=== PATIENT | female | born 1960 | race Caucasian/White ===

== ENCOUNTER 2018-07-23 18:59 | Inpatient (IN) ==
[2018-07-23 19:34] LABS: BILIRUBIN URINE NEGATIVE (NEGATIVE); BLOOD URINE 4+ (NEGATIVE); CLARITY VERY CLOUDY (CLEAR); COLOR YELLOW; GLUCOSE URINE NEGATIVE (NEGATIVE); KETONE URINE NEGATIVE (NEGATIVE); LEUKOCYTES URINE 2+ (NEGATIVE); NITRITE URINE POSITIVE (NEGATIVE); PROTEIN URINE TRACE mg/dL (NEGATIVE); UROBILINOGEN URINE NORMAL
[2018-07-23 19:53] LABS: URINE SOURCE CLEAN CATCH
[2018-07-23 19:54] LABS: URINE BACTERIA 4+ /HFP; URINE CAST NONE SEEN /LPF; URINE CRYSTAL NONE SEEN /HPF; URINE EPITHELIAL CELLS >10 /HPF (<10); URINE RBC TNTC /HPF (<10); URINE WBC TNTC /HPF (<10); URINE YEAST NONE SEEN /HPF
[2018-07-23] MEDS ORDERED: TYLENOL PO ONE (20:11)
[2018-07-23 20:13] LABS: BASO# 0.04 X1000 (0.0-0.2); BASO% 0.5 % (0.0-0.8); HEMATOCRIT 32.5 % (37.0-47.0); HEMOGLOBIN 11.2 g/dL (12.0-16.0); IMM GRAN# 0.02 X1000 (0.0-0.04); IMM GRAN% 0.2 % (0.0-0.5); LYMPH# 1.17 X1000 (1.2-3.4); LYMPH% 13.4 % (20.5-51.1); MCH 28.9 PG (27-31); MCHC 34.5 g/dL (33-37); MONO# 0.78 X1000 (0.11-0.59); MPV 8.5 FL (7.4-10.4); NEUT% 76.9 % (42.2-75.2); PLT 294 X1000 (130-400); RBC 3.87 XMIL (4.2-5.4); RDW 13.2 % (11.5-14.5); WBC 8.71 X1000 (4.8-10.8)
[2018-07-23] MEDS ORDERED: NS 1,000 ML IV ONE ×2 (20:13→21:12)
[2018-07-23 20:29] LABS: AGAP 12; ALBUMIN 3.9 g/dL (3.5-5.0); ALKALINE PHOSPHATASE 149 U/L (32-104); BUN 9 mg/dL (8-22); CALCIUM 8.5 mg/dL (8.8-10.2); CHLORIDE 91 mmol/L (98-107); COSMO 261; CREATININE 0.8 mg/dL (0.5-0.9); ESTIMATED GFR > 60; GLUCOSE 117 mg/dL (70-104); GOT 12 U/L (10-30); GPT 7 U/L (10-36); POTASSIUM 3.6 mmol/L (3.5-5.1); SODIUM 130 mmol/L (136-145); TCO2 28 mmol/L (25-35); TOTAL PROTEIN 7.8 g/dL (6.3-8.3)
[2018-07-23] MEDS ORDERED: GENTAMICIN 100 MG/NS 100 MG/100 ML IVPB IV ONE (20:30)
[2018-07-23] MEDS ORDERED: ROCEPHIN 1 GM in NS 50 ML IV ONE (20:31)
[2018-07-23] MEDS ORDERED: GENTAMICIN ONE (21:10)
[2018-07-23] MEDS ORDERED: NS 100 ML ONE (21:13)
--- NOTE | 2018-07-23 21:13 | Diag Imaging Result Doc PS360 ---
EXAM: CHEST-2 VIEWS 07/23/2018 HISTORY: sepsis TECHNIQUE: PA and lateral chest COMMENT: The heart size and primary vascularity are within normal limits. There is some ill-defined opacity in the medial right lower lobe. There are no previous plain radiographs available for comparison. There was no apparent opacity in the right lower lobe on the CT of 08/26/2017. IMPRESSION: Right lower lobe pneumonia. Electronically signed by Nickolas Deshpande 07/23/2018 9:11 PM
[2018-07-23] MEDS ORDERED: TYLENOL PO PRN (23:01)
[2018-07-23] MEDS ORDERED: ROBAXIN PO PRN (23:03)
[2018-07-23] MEDS: MORPHINE IV PRN (23:52)
[2018-07-23] MEDS: ZOFRAN IV PRN (23:52)
[2018-07-23] MEDS: NS 1,000 ML IV SCH (23:52)
[2018-07-23] MEDS: NORCO-10 PO PRN (23:53)
--- NOTE | 2018-07-24 04:30 | PROVIDER DOCUMENTATION ---
This chart was entered by Leidy Brown Scribe, acting as scribe for Wali Ray MD. HPI-General Adult - General Chief Complaint: Flank Pain Stated Complaint: FLU SX/BACK PAIN Time Seen by Provider: 07/23/18 19:30 Source: patient Allergies/Adverse Reactions: Patient Allergies Allergy/AdvReac Type Severity Reaction Status Date / Time diazepam [From Valium] Allergy Intermediate RASH Verified 11/01/17 05:36 pantoprazole sodium * Allergy Intermediate RASH Verified 11/01/17 05:36 [From Protonix] prednisone Allergy Intermediate FATIGUE Verified 11/01/17 05:36 oxycodone [Oxycodone] Allergy Unknown Verified 11/01/17 05:36 ketorolac [From Toradol] AdvReac NAUSEA/VOMI Verified 11/01/17 05:36 TING Home Medications: Home Medication List Medication Instructions Recorded Confirmed Last Taken Type Cevimeline [Evoxac] 30 mg PO DAILY 09/24/15 07/23/18 07/21/18 History Cholecalciferol (Vitamin D3) 2,000 unit PO DAILY 09/24/15 07/23/18 10/31/17 History [Vitamin D3] Citalopram [Celexa] 40 mg PO DAILY 09/24/15 07/23/18 07/21/18 History Cyanocobalamin (Vitamin B-12) 1,000 mcg IJ DAILY 09/24/15 07/23/18 3 Days Ago History [Cyanocobalamin Injection] ~07/20/18 Esomeprazole Magnesium [Nexium 22.3 mg PO DAILY 09/24/15 11/01/17 10/31/17 History 24Hr] Hydroxychloroquine [Plaquenil] 200 mg PO DAILY 09/24/15 07/23/18 10/31/17 History Simvastatin 20 mg PO DAILY 09/24/15 07/23/18 10/31/17 History Thyroid,Pork [[place] Thyroid] 120 mg PO DAILY 09/24/15 11/01/17 10/31/17 History Gabapentin 600 mg PO BID 11/01/17 07/23/18 2 Days Ago History ~07/21/18 Methocarbamol [Robaxin-750] 750 mg PO Q8H PRN #12 tablet 11/01/17 07/23/18 Unknown Rx Hydrocodone/Acetaminophen [[place] 1 ea PO TID 07/23/18 07/23/18 Unknown History 10-325 Tablet] Levothyroxine Sodium 125 mg PO DAILY 07/23/18 07/23/18 Unknown History - History of Present Illness -Gen Adult Nature of Presenting Problems: Pt is 57/F presenting to ED w/ c/o R flank pain, fever and polyuria. Pt has hx of R kidney infections and scarring. Location of Pain/Injury: reports: lower body (R flank pain) Pain Radiation: reports: flank (R) Severity: reports: moderate Onset/Duration: reports: just prior to arrival Timing: reports: still present Context/Activities at Onset: reports: none Modifying Factors: improves with: nothing Associated Symptoms: denies: chest pain, cough, fatigue, nausea, vomiting Similar Symptoms Previously?: Yes Recently seen or treated by another doctor?: No Review of Systems - Adult - REVIEW OF SYSTEMS - ADULT Constitutional: reports: fever. denies: chills Eyes: reports: no symptoms reported Ears, Nose, Mouth & Throat: reports: no symptoms reported Cardiovascular: reports: no symptoms reported. denies: chest pain, edema Respiratory: reports: no symptoms reported Gastrointestinal: reports: no symptoms reported. denies: nausea, vomiting Genitourinary: reports: frequency, flank pain (R flank) Integumentary: reports: no symptoms reported Neurological: reports: no symptoms reported. denies: dizziness/vertigo, headache/migraines Psychiatric: reports: no symptoms reported Endocrine: reports: no symptoms reported Hematologic/Lymphatic: reports: no symptoms reported Allergic/Immunologic: reports: no symptoms reported All Other Systems: Reviewed and Negative Past History - Adult - PAST MEDICAL HISTORY-ADULT Review of Records: reports: Old Records Reviewed, Nursing Assessment Review, Medications Reviewed, Social history reviewed & non-contributory. Major Childhood Illnesses: reports: denies history Cardiovascular: reports: denies history, other (sleep apnea) Respiratory: reports: other Gastrointestinal: reports: cancer Obstetrical/Gynecological: reports: denies history Genitourinary: reports: denies history Musculoskeletal: reports: denies history Neurological: reports: denies history Endocrine/Immune: reports: thyroid disorder Other Conditions: reports: denies history - PRIOR SURGERIES/PROCEDURES Surgical/Procedure History: reports: appendectomy, cholecystectomy, hysterectomy , orthopedic (extremity), other - PRIOR HOSPITALIZATIONS Prior Hospitalizations: reports: for other non-related - IMMUNIZATION STATUS Childhood Immunizations: UTD, See Nurse Assessment Flu Vaccine: See Nurse Assessment - FAMILY HISTORY Family History: reviewed, not pertinent - SOCIAL HISTORY Smoking: denies, non-smoker Substance Use: none/never Alcohol Use Frequency: never Living Situation: family Physical Exam-General - PHYSICAL EXAM-ADULT Initial Vital Signs Reviewed: Yes - CONSTITUTIONAL General Appearance: alert, mild distress - EYES Eyes: PERRL/EOMI - HEAD, EARS, NOSE, MOUTH & THROAT HENMT: normocephalic/atraumatic, moist mucous membranes, pharynx normal - NECK Neck: non-tender, full range of motion, supple - RESPIRATORY Respiratory: lungs clear, normal breath sounds - CARDIOVASCULAR Cardiovascular: regular rate, rhythm - GASTROINTESTINAL (ABDOMEN) Abdominal Exam: normal bowel sounds, non tender, soft - LYMPHATIC Lymphatic: no adenopathy - MUSCULOSKELETAL Back Exam: CVA tenderness (R sided CVA tenderness) Extremity: normal range of motion, non-tender, normal gait, normal inspection - SKIN Integumentary: normal color, warm/dry - NEUROLOGIC Neurologic: grossly normal - PSYCHIATRIC Psych/Mental Status: oriented x 3 Progress - PLAN OF CARE/RESULTS Progress/Plan/Lab Results: Vital Signs - 8 hr 07/23/18 19:16 07/23/18 20:22 Temperature 99.1 F Pulse Rate 117 H 111 H Respiratory Rate 20 22 Blood Pressure 140/71 O2 Sat by Pulse Oximetry 99 98 Laboratory Results - last 24 hr 07/23/18 07/23/18 07/23/18 19:24 20:01 20:01 WBC 8.71 RBC 3.87 L Hgb 11.2 L Hct 32.5 L MCV 84.0 MCH 28.9 MCHC 34.5 RDW Std Deviation 13.2 Plt Count 294 MPV 8.5 Immature Gran % (Auto) 0.2 Neut % (Auto) 76.9 H Lymph % (Auto) 13.4 L [place] % (Auto) 9.0 Eos % (Auto) 0.0 Baso % (Auto) 0.5 Immature Gran # (Auto) 0.02 Neut # (Auto) 6.70 H Lymph # (Auto) 1.17 L [place] # (Auto) 0.78 H Eos # (Auto) 0.00 Baso # (Auto) 0.04 Sodium 130 L Potassium 3.6 Chloride 91 L Carbon Dioxide 28 Anion Gap 12 BUN 9 Creatinine 0.8 Estimated GFR/1.73 m2 > 60 BUN/Creatinine Ratio 11 Glucose 117 H Calculated Osmolality 261 Calcium 8.5 L Total Bilirubin 0.60 AST 12 ALT 7 L Alkaline Phosphatase 149 H Total Protein 7.8 Albumin 3.9 Globulin 4.0 Albumin/Globulin Ratio 1.0 Plasma Lactate Urine Source CLEAN CATCH Urine Color YELLOW Urine Clarity VERY CLOUDY A Urine pH 8.0 Ur Specific [place] 1.010 Urine Protein TRACE A Urine Ketones NEGATIVE Urine Blood 4+ Urine Nitrite POSITIVE A Urine Bilirubin NEGATIVE Urine Urobilinogen NORMAL Urine Microscopic RBC TNTC A Urine WBC 2+ A Urine Microscopic WBC TNTC A Ur Epithelial Cells >10 A Urine Crystals NONE SEEN Urine Bacteria 4+ Urine Casts NONE SEEN Urine Yeast NONE SEEN Urine Glucose NEGATIVE 07/23/18 20:01 WBC RBC Hgb Hct MCV MCH MCHC RDW Std Deviation Plt Count MPV Immature Gran % (Auto) Neut % (Auto) Lymph % (Auto) [place] % (Auto) Eos % (Auto) Baso % (Auto) Immature Gran # (Auto) Neut # (Auto) Lymph # (Auto) [place] # (Auto) Eos # (Auto) Baso # (Auto) Sodium Potassium Chloride Carbon Dioxide Anion Gap BUN Creatinine Estimated GFR/1.73 m2 BUN/Creatinine Ratio Glucose Calculated Osmolality Calcium Total Bilirubin AST ALT Alkaline Phosphatase Total Protein Albumin Globulin Albumin/Globulin Ratio Plasma Lactate 1.2 Urine Source Urine Color Urine Clarity Urine pH Ur Specific [place] Urine Protein Urine Ketones Urine Blood Urine Nitrite Urine Bilirubin Urine Urobilinogen Urine Microscopic RBC Urine WBC Urine Microscopic WBC Ur Epithelial Cells Urine Crystals Urine Bacteria Urine Casts Urine Yeast Urine Glucose Orders Category Date Time Status Admit - [facility] Routine AdmDCTranf 07/23/18 20:55 Active cxr [CHEST-2 VIEWS] [RAD] Stat Exams 07/23/18 20:21 Taken BLOOD CULTURE [BLDCUL] Stat Lab 07/23/18 20:11 Ordered CBC WITH ELECTRONIC DIFF [HEME] Stat Lab 07/23/18 20:01 Completed CMP [COMPREHENSIVE METABOLIC PANEL] [CHEM] Stat Lab 07/23/18 20:01 Completed LACTATE, PLASMA [CHEM] Stat Lab 07/23/18 20:[address] W/POSS RFLX CULT [URINALYSIS] Stat Lab 07/23/18 19:24 Completed URINE CULTURE [RM] Routine Lab 07/23/18 19:54 Ordered 0.9% Sodium Chloride Inj [Ns] 1,000 ml Med 07/23/18 20:13 Active IV 999 mls/hr Acetaminophen [Tylenol] Med 07/23/18 20:11 Discontinued 1,000 mg PO NOW ONE CefTRIAXONE [Rocephin] 1 gm Med 07/23/18 20:31 Discontinued 0.9% Sodium Chloride Inj [Ns] 50 ml IV NOW Gentamicin 100 mg/Ns Med 07/23/18 20:30 Active 100 mg in 100 ml IV NOW Transfer/Admit Order [TRANSFER] Routine Transfer 07/23/18 20:56 Ordered Result Diagrams: 07/23/18 20:01 07/23/18 20:01 - XRAY 1 XRAY: Bilateral XRAY Study: Chest Impression: Abnormal (IMPRESSION: Right lower lobe pneumonia. Electronically signed by Nickolas Deshpande 07/23/2018 9:11 PM [id number]) Departure - Departure Date of Disposition Decision: 07/23/18 Time of Disposition Decision: 20:50 DIAGNOSIS: Pyelonephritis Pneumonia Qualifiers: Pneumonia type: due to unspecified organism Laterality: right Lung location: lower lobe of lung Qualified Code(s): J18.1 - Lobar pneumonia, unspecified organism Disposition: ADMITTED INPATIENT 09 Certified Medical Emergency: Emergent Condition: Stable - Critical Care Note This patient required my direct & personal management of CC.: No Attestation - Physician/ JOSEF Attestation Patient care was provided by Advanced Practice Provider:: No The physician spent face to face time with patient:: Yes Advanced Practice Provider documentation review:: Supervising physician onsite and consulted in the evaluation and care of this patient. The physician did have a face to face encounter with the patient. This chart was documented by the indicated scribe, (Leidy Brown Scribe) and accurately reflects the services I performed and decisions made by me, Wali Vieira MD, as attested by the provider's signature.
[2018-07-24] MEDS: ZOFRAN IV PRN (04:35)
[2018-07-24] MEDS: MORPHINE IV PRN (04:36)
[2018-07-24 06:15] LABS: BASO# 0.01 X1000 (0.0-0.2); BASO% 0.2 % (0.0-0.8); EOS# 0.03 X1000 (0.0-0.7); EOS% 0.5 % (0.0-10.0); HEMATOCRIT 30.3 % (37.0-47.0); HEMOGLOBIN 9.9 g/dL (12.0-16.0); LYMPH# 0.74 X1000 (1.2-3.4); LYMPH% 12.2 % (20.5-51.1); MCH 27.7 PG (27-31); MCHC 32.7 g/dL (33-37); MCV 84.9 FL (81-99); MONO# 0.53 X1000 (0.11-0.59); MONO% 8.7 % (1.7-9.3); MPV 8.8 FL (7.4-10.4); NEUT# 4.75 X1000 (1.4-6.5); NEUT% 78.4 % (42.2-75.2); PLT 222 X1000 (130-400); RBC 3.57 XMIL (4.2-5.4); RDW 13.4 % (11.5-14.5); WBC 6.06 X1000 (4.8-10.8)
[2018-07-24] MEDS: PRILOSEC PO SCH ×2 (06:22→06:23)
[2018-07-24] MEDS: NS 1,000 ML IV SCH ×3 (06:24→18:10)
[2018-07-24 06:40] LABS: AGAP 11; BUN 8 mg/dL (8-22); CALCIUM 7.7 mg/dL (8.8-10.2); CHLORIDE 98 mmol/L (98-107); COSMO 267; CREATININE 0.7 mg/dL (0.5-0.9); ESTIMATED GFR > 60; GLUCOSE 112 mg/dL (70-104); POTASSIUM 3.5 mmol/L (3.5-5.1); SODIUM 134 mmol/L (136-145); TCO2 26 mmol/L (25-35)
[2018-07-24] MEDS: NORCO-10 PO PRN ×2 (08:52→15:26)
[2018-07-24] MEDS: PLAQUENIL PO SCH (09:06)
[2018-07-24] MEDS: NEURONTIN PO SCH ×2 (09:06→21:11)
[2018-07-24] MEDS: VITAMIN D PO SCH (09:06)
[2018-07-24] MEDS: SYNTHROID PO SCH ×2 (09:06)
[2018-07-24] MEDS: ZOCOR PO SCH (09:06)
[2018-07-24] MEDS: DUONEB (A & A) INH SCH ×4 (11:31→22:57)
[2018-07-24] MEDS: ZITHROMAX 500 MG/NS 500 MG/250 ML IVPB IV SCH (11:58)
[2018-07-24] MEDS: CELEXA PO SCH (11:58)
[2018-07-24] MEDS: PATIENT'S OWN MED PO SCH (11:59)
[2018-07-24] MEDS: ROCEPHIN 1 GM in NS 50 ML IV SCH (21:11)
[2018-07-24] MEDS: REQUIP PO SCH (21:11)
[2018-07-25] MEDS: NS 1,000 ML IV SCH ×3 (03:27→23:56)
[2018-07-25] MEDS: DUONEB (A & A) INH SCH ×6 (03:31→23:04)
[2018-07-25] MEDS: NORCO-10 PO PRN ×2 (04:07→11:31)
[2018-07-25] MEDS: PRILOSEC PO SCH (06:20)
[2018-07-25] MEDS: SYNTHROID PO SCH ×2 (06:21)
[2018-07-25] MEDS ORDERED: SYNTHROID PO SCH (07:00)
[2018-07-25] MEDS: CELEXA PO SCH (09:48)
[2018-07-25] MEDS: NEURONTIN PO SCH ×2 (09:48→20:19)
[2018-07-25] MEDS: VITAMIN D PO SCH (09:49)
[2018-07-25] MEDS: PLAQUENIL PO SCH (09:49)
[2018-07-25] MEDS: ZOCOR PO SCH (09:49)
[2018-07-25] MEDS: PATIENT'S OWN MED PO SCH (09:57)
[2018-07-25] MEDS: ZITHROMAX 500 MG/NS 500 MG/250 ML IVPB IV SCH (10:25)
--- NOTE | 2018-07-25 11:10 | PROGRESS NOTE ---
DATE: 07/25/2018 SUBJECTIVE: Patient feels somewhat better this morning, although she still has right flank pain. OBJECTIVE: Vital Signs: Temperature 98 degrees, pulse 79 per minute, respiratory rate 18 per minute, blood pressure 100/43, pulse oximetry 99% on room air. General: Patient is alert and oriented x3. She does not appear to be in any acute distress. Cardiovascular System: First and second heart sounds are audible without any murmurs or gallops. Respiratory System: Bilateral lung air entry is good without any rales or rhonchi. Gastrointestinal: Abdomen is soft and significantly tender in the right flank area, although the tenderness is much better as compared to yesterday. DIAGNOSTIC DATA: CBC shows hemoglobin of 9.9 and hematocrit 30.3. In comparison, her hemoglobin and hematocrit were 11.2 and 32.5 yesterday. I believe there is a drop in hemoglobin and hematocrit because of hemodilution. Blood cultures have been positive for gram-negative rods. The sensitivity report is pending at this time. Urine cultures are also pending at this time. IMPRESSION: 1. Acute pyelonephritis. 2. Right lower lobe pneumonia. 3. Hypothyroidism. 4. Gram negative bacteremia secondary to acute pyelonephritis. PLAN: The patient will be continued on ceftriaxone along with azithromycin intravenously, along with IV fluid. We are going to continue with levothyroxine 125 mcg p.o. daily for her hypothyroidism, and we will repeat laboratories, along with chest x-ray tomorrow morning. Further recommendations will be given as per hospital course. cc: Julio Santiago MD
--- NOTE | 2018-07-25 16:02 | HISTORY AND PHYSICAL ---
CHIEF COMPLAINT: Fever. HISTORY OF PRESENT ILLNESS: Patient is a 57-year-old female who presented to the emergency department with nausea, vomiting, fever, and backaches. She was subsequently diagnosed with pyelonephritis through the ER. The patient states that her symptoms have been going on for the past couple of days. Continued to worsen with right flank pain, nausea, vomiting, increased urination, increased pain with urination. Notes that she has a history of kidney infections. ALLERGIES: Valium, Protonix causing a rash, oxycodone unknown, Toradol causing nausea. MEDICATIONS: 1. Evoxac. 2. Vitamin D. 3. Celexa 40. 4. Vitamin B12. 5. Magnesium. 6. Nexium. 7. Plaquenil 200. 8. [place] Thyroid 120. 9. [place] p.r.n. REVIEW OF SYSTEMS: The patient notes that she has had increase fevers, flank pain, increased polyuria, as well as dysuria. Denies any constipation, melena, hematochezia. Denies vomiting but states she has been nauseated. Notes she has had some fevers, low-grade chills. Denies any headaches, blurred vision, change in vision. Denies any focalized numbness or weakness in her extremities PAST MEDICAL HISTORY: Significant for sleep apnea, hypothyroidism, history of cancer. She has had an appendectomy, cholecystectomy, hysterectomy. FAMILY HISTORY: Noncontributory. SOCIAL HISTORY: She does not smoke nor drink, although does have smokers in the house. PHYSICAL EXAMINATION: VITAL SIGNS: Temperature 99, pulse 117, respiratory rate 20, BP 140/71, saturating 99% on room air. GENERAL: Patient is awake, alert. Currently in no respiratory distress. She is somewhat ill- appearing but very pleasant to talk with. She is alert and oriented x3. HEENT: Normocephalic, atraumatic. [place]. EOMI. NECK: Supple. No JVD. CARDIOVASCULAR: Regular rate. No murmurs. CHEST: Clear and nonlabored. ABDOMEN: Soft, nondistended. Positive right-sided flank pain. Tender to mild palpation. EXTREMITIES: Moves all extremities well. NEUROLOGIC: No focal changes. SKIN: Warm and dry. No rashes. ASSESSMENT: 1. Nausea and vomiting. 2. Pyelonephritis. 3. Sepsis secondary to urinary source with tachycardia and fever. PLAN: We will continue the patient in the hospital. Place her on antibiotics, IV fluids, pain control. Follow her hypernatremia. Further orders as needed. We will restart medications once confirmed. cc: Jeovanny Bullock MD
[2018-07-25] MEDS: ROCEPHIN 1 GM in NS 50 ML IV SCH (20:19)
[2018-07-25] MEDS: REQUIP PO SCH (20:19)
[2018-07-26] MEDS: NORCO-10 PO PRN (01:14)
[2018-07-26] MEDS ORDERED: AMBIEN PO PRN (02:42)
[2018-07-26] MEDS: NS 1,000 ML IV SCH (04:05)
[2018-07-26] MEDS: DUONEB (A & A) INH SCH ×3 (05:03→10:46)
[2018-07-26] MEDS: SYNTHROID PO SCH ×2 (06:44)
[2018-07-26] MEDS: PRILOSEC PO SCH (06:44)
[2018-07-26 06:45] LABS: BASO# 0.02 X1000 (0.0-0.2); BASO% 0.5 % (0.0-0.8); EOS# 0.14 X1000 (0.0-0.7); EOS% 3.8 % (0.0-10.0); HEMATOCRIT 27.6 % (37.0-47.0); HEMOGLOBIN 8.9 g/dL (12.0-16.0); IMM GRAN# 0.01 X1000 (0.0-0.04); IMM GRAN% 0.3 % (0.0-0.5); LYMPH# 1.24 X1000 (1.2-3.4); LYMPH% 33.5 % (20.5-51.1); MCH 27.4 PG (27-31); MCHC 32.2 g/dL (33-37); MCV 84.9 FL (81-99); MONO# 0.61 X1000 (0.11-0.59); MONO% 16.5 % (1.7-9.3); MPV 8.9 FL (7.4-10.4); NEUT# 1.68 X1000 (1.4-6.5); NEUT% 45.4 % (42.2-75.2); PLT 215 X1000 (130-400); RBC 3.25 XMIL (4.2-5.4); RDW 13.5 % (11.5-14.5)
[2018-07-26 07:00] LABS: AGAP 9; BUN 4 mg/dL (8-22); CALCIUM 8.4 mg/dL (8.8-10.2); CHLORIDE 106 mmol/L (98-107); COSMO 281; CREATININE 0.6 mg/dL (0.5-0.9); ESTIMATED GFR > 60; GLUCOSE 119 mg/dL (70-104); POTASSIUM 4.5 mmol/L (3.5-5.1); SODIUM 142 mmol/L (136-145); TCO2 27 mmol/L (25-35)
--- NOTE | 2018-07-26 07:45 | Diag Imaging Result Doc PS360 ---
EXAM: CHEST-PORTABLE HISTORY: Pneumonia TECHNIQUE: Portable chest single view COMPARISON: 07/23/2018 FINDINGS: The lungs are well expanded. The heart is not enlarged. The vessels are not distended. There are minimal increased markings in the lung bases. No effusion identified. IMPRESSION: Questionable small basilar infiltrates Electronically signed by Gabriele Oliver 07/26/2018 7:42 AM
[2018-07-26] MEDS ORDERED: ZITHROMAX PO SCH (09:00)
[2018-07-26] MEDS: PLAQUENIL PO SCH (09:32)
[2018-07-26] MEDS: VITAMIN D PO SCH (09:32)
[2018-07-26] MEDS: PATIENT'S OWN MED PO SCH (09:33)
[2018-07-26] MEDS: NEURONTIN PO SCH (09:33)
[2018-07-26] MEDS: CELEXA PO SCH (09:33)
[2018-07-26 11:05] VITALS: BP 138/78
[2018-07-26] MEDS ORDERED: ZOCOR PO SCH (21:00)
--- NOTE | 2018-07-26 22:07 | DISCHARGE SUMMARY ---
ADMISSION DATE: 07/23/2018 DISCHARGE DATE: 07/26/2018 DIAGNOSES: 1. Escherichia coli urinary tract infection extended spectrum beta-lactamase negative. 2. Pyelonephritis secondary to #1. 3. Escherichia coli bacteremia secondary to #1. 4. Hypothyroidism. 5. Sepsis secondary to #1 resolved. DIAGNOSTICS: 1. 07/23/2018 chest x-ray revealed right lower lobe pneumonia. 2. 07/26/2018 chest x-ray revealed questionable small basilar infiltrates. 3. Microbiology. Urine culture revealed ESBL negative E coli. 4. Blood cultures x2 revealed ESBL negative E coli. HOSPITAL COURSE: Ms Rios presented to the emergency room complaining of nausea, fever, back aches. She was subsequently diagnosed with pyelonephritis. Urine cultures as well as blood cultures revealed ESBL negative E coli. She initially received Rocephin and azithromycin for antibiotic coverage. After sensitivities have returned the patient is susceptible to Levaquin which we will be able to discharge her on orally. The patient does have screws and plates in her back as well as a stimulator. I did discuss this with Dr. Cale Joe, who recommended that the patient be on Levaquin 500 mg daily for 6 weeks. He will see her in 3 weeks about reevaluate check labs to which the patient is agreeable. DISCHARGE MEDICATIONS: Ropinirole 1 mg at bedtime, simvastatin 20 mg p.o. at bedtime, Adderall 50 mg p.o. t.i.d., Celexa 40 mg p.o. daily, vitamin B12 1000 mcg daily, Evoxac 30 mg p.o. t.i.d., gabapentin 600 mg p.o. b.i.d., levothyroxine 125 mcg p.o. daily, [place] 10/325 t.i.d. at 9, 3 and 9 as prehospitalization, Plaquenil 200 mg p.o. daily, Robaxin 750 mg p.o. q.8 hours p.r.n., Levaquin 500 mg p.o. daily for 6 weeks. FOLLOWUP: She is to follow up with Dr. Cale Joe in 3 weeks. Appointment has been made for August 16 at 3 o'clock. The patient has been informed verbally as well as in writing of this appointment. She has been instructed to return to the ER or call to be seen sooner for temperature greater than 101, for any syncope, dizziness, chest pain, palpitations, any shortness of breath, recurring cough, any nausea, vomiting, diarrhea, constipation, black or bloody vomitus or stools, any hematuria, dysuria, frequency, urgency. She is being discharged home in stable condition with family members. TIME SPENT: Greater than 30 minutes. Dictated by JENAE Ayers for Jeovanny Bullock MD This chart was documented by, JENAE Ayers and accurately reflects the services performed, treatment plan and medical decisions as attested by the providers signature Jeovanny Bullock MD. cc: JENAE Ayers MD [facility]
--- NOTE | 2018-07-27 08:36 | DISCHARGE SUMMARY ---
ADMISSION DATE: 07/23/2018 DISCHARGE DATE: 07/26/2018 ADDENDUM: Patient seen and examined by myself. Full note dictated and discussed with nurse practitioner. Patient currently is in no distress. She is feeling better. She does have Escherichia coli in her blood that is thankfully sensitive to Levaquin. She has had surgery on her neck with placement of plates. Therefore, we will place her on Levaquin for 6 weeks. She will follow up outpatient with Dr. Joe in 3 weeks to recheck her laboratories. cc: Jeovanny Bullock MD
== END 2018-07-26 13:00 | disposition home or self-care (01) | DRG 871 ==
LOC: P.ED 18:59 → SUATTDRO 19:00 → P.MEDSURG 19:00
PROVIDERS: ATTEND Family Medicine
CPT/HCPCS: 71010; 71020; 71045; 71046; 80048; 80053; 81001; 82948; 83605; 84443; 85025; 87040; 87077; 87088; 87186; 94640; 94761; 96365; 96366; 96368; 99285; A9270; J0456; J0696; J1580; J2270; J2405; J7030; XXXXX